=== PATIENT | male | born 1960 | race Caucasian/White ===

== ENCOUNTER 2019-09-09 09:29 | Inpatient (IN) | payer OTHER ==
[~2019-09-09] VITALS: Ht 172.7 cm; Wt 73.8 kg
[~2019-09-09 09:29] MED LIST: ALBIPROI INH; ALBU3IS INH; ALBU90OI INH; ALBU90OI61 INH; Albuterol17 G1 INH; BENZ100A PO; BUDE10.22 INH; BUDE6HFA; CHOLESTEROL MED; MAGOXI400 PO; METPRE4DP PO; PRED10 PO; PRED20 PO; Percocet 5-3251 EACH PO; Prednisone20 MG PO; Proventil2.5 MG/3 M INH; TIOT18 INH; Zithromax250 MG PO
[2019-09-09 09:44] LABS: PO2 Arterial 245 mmHg (80-100)
[2019-09-09 09:44] LABS: BASOPHILS ABSOLUTE AUTO 0.12 K/mm3 (0.00-0.23); BASOPHILS PERCENT AUTO 1 % (0-2); EOSINOPHILS ABSOLUTE AUTO 1.08 K/mm3 (0.00-0.68); EOSINOPHILS PERCENT AUTO 7 % (0-6); Hematocrit 52.6 % (37.0-53.0); Hemoglobin 16.6 g/dL (13.5-17.5); IMMATURE GRAN ABSOLUTE AUTO 0.15 K/mm3 (0.00-0.10); IMMATURE GRAN PERCENT AUTO 1 % (0-1); LYMPHOCYTES ABSOLUTE AUTO 4.16 K/mm3 (0.84-5.20); LYMPHOCYTES PERCENT AUTO 25 % (21-46); MONOCYTES ABSOLUTE AUTO 2.06 K/mm3 (0.16-1.47); MONOCYTES PERCENT AUTO 13 % (4-13); Mean Corpuscular HGB Conc 31.6 g/dL (31.5-36.5); Mean Corpuscular Volume 101 fL (80-100); Mean Platelet Volume 10.6 fL (9.1-12.4); NEUTROPHILS ABSOLUTE AUTO 8.79 K/mm3 (1.96-9.15); NEUTROPHILS PERCENT AUTO 54 % (41-73); Platelet Count 326 K/mm3 (150-400); RDW Coefficient Variation 12.9 % (11.7-14.2); RDW Standard Deviation 48.5 fL (35.1-46.3); Red Blood Cell Count 5.19 M/mm3 (4.30-5.90); White Blood Cell Count 16.36 K/mm3 (4.00-11.30)
[2019-09-09 09:45] LABS: pH Blood Arterial 7.03 (7.35-7.45)
[2019-09-09 09:46] LABS: PCO2 Arterial > 105 mmHg (35-45)
[2019-09-09 10:03] LABS: Alanine Aminotransfer (ALT/SGP 91 U/L (12-78); Albumin, Blood 4.3 g/dL (3.4-5.0); Albumin/Globulin Ratio 1.2 (0.8-1.8); Alk Phos 111 U/L (50-136); Anion Gap 5 mmol/L (6-16); Aspartate Aminotrans (AST/SGOT 37 U/L (12-37); Bilirubin, Total 0.4 mg/dL (0.1-1.0); Blood Urea Nitrogen 16 mg/dL (8-24); Bun/Creatinine Ratio 16.6 (12.0-20.0); CO2, Blood 30 mmol/L (21-32); Calcium, Blood 9.2 mg/dL (8.5-10.1); Chloride, Blood 106 mmol/L (98-108); Creatinine, Blood 0.96 mg/dL (0.60-1.20); Globulin, Blood 3.5 g/dL (2.2-4.0); Glomerular Filtration Rate >60 (60-); Glucose, Blood 196 mg/dL (70-99); Potassium, Blood 4.6 mmol/L (3.5-5.5); Sodium, Blood 141 mmol/L (136-145); Total Protein, Blood 7.8 g/dL (6.4-8.2)
--- NOTE | 2019-09-09 12:40 | NUR ---
Patient arrived via gurney intubated and on sedation. He was 4 person transfer. He arrived wpyj 8.0 tube and 26cm at lips, vent settings AC 16, TV450 FiO2 30% with sats 100%.1240 Dr Ayers changed to spon. mode PS ) Fio2 30% and PEEP 5.0 and sats remain upper 90%'s. Placed OG to LIS and temp 16Fr Elias with clear lighrt yellow urine and sent sample to lab. He was starting to become Hypotensive systolic 80 and MAP >60 with Propofol 50mcg, Versed 3mg and started Azam-synepherine at 40mcg/min and systolic 90's. RT giving updrafts q2.
[2019-09-09 12:46] LABS: Source, Urine Catheter
[2019-09-09 12:49] LABS: Bilirubin, Urine Neg (Neg); Blood, Urine 2+ (Neg); Glucose Qualitative, Urine Neg (Neg); Ketones, Urine Neg (Neg); Leukocyte Esterase, Urine Neg (Neg); Nitrite, Urine Neg (Neg); Protein, Urine 2+ (Neg); Urobilinogen, Urine NORM (Normal)
[2019-09-09 13:12] LABS: Appearance, Urine Cloudy (Clear); Color, Urine Yellow (P-Yellow)
[2019-09-09 13:14] LABS: Amorphous Mod (0-Heavy); Bacteria Few /hpf; Red Blood Cells, Urine 0-2 /hpf (0-2); Squamous Epithelial Cells Few /hpf (Few); White Blood Cells, Urine 0-2 /hpf (0-5)
--- NOTE | 2019-09-09 15:00 | NUR ---
Titrating Propofol and Azam for systolic greater than 90, with little success and not want to increase Azam very high until CL placed. Called Dr Armen brooksved guero for PICC and he wants 2GM mag and continue updrats q2.
[2019-09-09 18:07] LABS: Base Excess Venous -2.9 mmol/L; Bicarbonate Venous 21.7 mmol/L (24.0-30.0); PCO2 Venous 43.6 mmHg (38-42); PO2 Venous 52.8 mmHg (38-42); pH Blood Venous 7.33 (7.34-7.37)
--- NOTE | 2019-09-09 18:31 | NUR ---
No significant changes with patient. Vent settings remains the same at Spon mode , PS 0, FiO2 30% and PEEP of 5 and sats in the upper 90%'s. PICC line CORINNE and infusing Propofol 50mcg/kg/min, Azam-synepherine 50 mcg/min, Versed 4mg/hr and currently Mag 2GM. Patient resting quietly, but breath sounds still tight with decreased wheezing. 16Fr Temp puentes, urine getting cloudy, OG to LIS with scant clear output.
--- NOTE | 2019-09-09 20:44 | NUR ---
ASSUMED CARE OF PT, REPORT RCV'D FROM ELIDA MARIO. PT INTUBATED WITH VENT SETTINGS SPONT 0 PEEP 5 FIO2 30%. SEDATED WITH PROPFOL 50 MCG/KG/MIN AND VERSED 4 MG/HR. PT ALERT TO PAINFUL STIMULI, FAILS TO FOLLOW COMMANDS. JULIETTE AT 50 MCG/MIN. LUNG SOUNDS EXTREMELY TIGHT T/O WITH WHEEZES. Q2 DUONEB TX PER RT. OGT TO LIS, CLEAR BILE OUTPUT. SCANT AMOUNT OF THICK BRUNO SECRETIONS SUCTIONED. TEMP BERMAN DRAINING CLOUDY YELLOW URINE. SEE FULL SHIFT ASSESSMENT.
[2019-09-09 21:06] LABS: Adenovirus Not Detected (NOT DETECT); Bordetella pertussis Not Detected (NOT DETECT); Chlamydophila pneumoniae Not Detected (NOT DETECT); Coronavirus 229E Not Detected (NOT DETECT); Coronavirus HKU1 Not Detected (NOT DETECT); Coronavirus NL63 Not Detected (NOT DETECT); Coronavirus OC43 Not Detected (NOT DETECT); Human Metapneumovirus Not Detected (NOT DETECT); Human Rhinovirus/Enterovirus Not Detected (NOT DETECT); Influenza A Not Detected (NOT DETECT); Influenza A/2009-H1 Not Detected (NOT DETECT); Influenza A/H1 Not Detected (NOT DETECT); Influenza A/H3 Not Detected (NOT DETECT); Influenza B Not Detected (NOT DETECT); Mycoplasma pneumoniae Not Detected (NOT DETECT); Parainfluenza Virus 1 Not Detected (NOT DETECT); Parainfluenza Virus 2 Not Detected (NOT DETECT); Parainfluenza Virus 3 Not Detected (NOT DETECT); Parainfluenza Virus 4 Not Detected (NOT DETECT); Respiratory Syncytial Virus Not Detected (NOT DETECT)
[2019-09-10 04:08] LABS: BASOPHILS ABSOLUTE AUTO 0.03 K/mm3 (0.00-0.23); BASOPHILS PERCENT AUTO 0 % (0-2); EOSINOPHILS PERCENT AUTO 0 % (0-6); Hematocrit 42.7 % (37.0-53.0); Hemoglobin 13.9 g/dL (13.5-17.5); IMMATURE GRAN ABSOLUTE AUTO 0.16 K/mm3 (0.00-0.10); IMMATURE GRAN PERCENT AUTO 1 % (0-1); LYMPHOCYTES ABSOLUTE AUTO 0.62 K/mm3 (0.84-5.20); LYMPHOCYTES PERCENT AUTO 3 % (21-46); MONOCYTES ABSOLUTE AUTO 1.45 K/mm3 (0.16-1.47); MONOCYTES PERCENT AUTO 8 % (4-13); Mean Corpuscular HGB 32.6 pg (26.0-34.0); Mean Corpuscular HGB Conc 32.6 g/dL (31.5-36.5); Mean Corpuscular Volume 100 fL (80-100); Mean Platelet Volume 10.6 fL (9.1-12.4); NEUTROPHILS ABSOLUTE AUTO 17.09 K/mm3 (1.96-9.15); NEUTROPHILS PERCENT AUTO 88 % (41-73); Platelet Count 264 K/mm3 (150-400); RDW Coefficient Variation 13.5 % (11.7-14.2); RDW Standard Deviation 50.3 fL (35.1-46.3); Red Blood Cell Count 4.27 M/mm3 (4.30-5.90); White Blood Cell Count 19.35 K/mm3 (4.00-11.30)
[2019-09-10 04:33] LABS: Magnesium, Blood 2.5 mg/dL (1.6-2.4)
[2019-09-10 04:36] LABS: Alanine Aminotransfer (ALT/SGP 63 U/L (12-78); Albumin/Globulin Ratio 0.9 (0.8-1.8); Alk Phos 80 U/L (50-136); Anion Gap 8 mmol/L (6-16); Aspartate Aminotrans (AST/SGOT 23 U/L (12-37); Bilirubin, Total 0.4 mg/dL (0.1-1.0); Blood Urea Nitrogen 18 mg/dL (8-24); Bun/Creatinine Ratio 21.4 (12.0-20.0); CO2, Blood 25 mmol/L (21-32); Calcium, Blood 8.5 mg/dL (8.5-10.1); Chloride, Blood 108 mmol/L (98-108); Creatinine, Blood 0.84 mg/dL (0.60-1.20); Globulin, Blood 3.3 g/dL (2.2-4.0); Glomerular Filtration Rate >60 (60-); Glucose, Blood 152 mg/dL (70-99); Potassium, Blood 3.9 mmol/L (3.5-5.5); Sodium, Blood 141 mmol/L (136-145); Total Protein, Blood 6.3 g/dL (6.4-8.2)
--- NOTE | 2019-09-10 06:06 | NUR ---
SHIFT SUMMARY PT REMAINS INTUBATED WITH SAME VENT SETTINGS. PROPOFOL @ 55 MCG/KG/MIN, PT EASILY AROUSED AND ABLE TO FOLLOW COMMANDS TO SQUEEZE HANDS, PT ANSWERS QUESTIONS WITH NODDING HEAD YES/NO AND TRIES TO TALK. PT PULLS AT RESTRAINTS AND ATTEMPTS TO GRAB THE TUBE WHEN RESTLESS. PT TOLERATED SPONTANEOUS VENT SETTINGS OVERNIGHT WITH MINIMAL VENT ALARMING. Q2 BREATHING TX COMPLETED WITH LITTLE TO NO IMPROVEMENT IN LUNG SOUNDS. LUNGS REMAIN TIGHT/DIM T/O WITH OCC WHEEZE. SCANT AMOUNT OF SECRETIONS FROM ETT. OGT HAD 500 ML DARK BROWN BILE OUTPUT. 600 ML CLOUDY YELLOW URINARY OUTPUT. NEOSYNEPHRINE @ 20 MCG/MIN TO MAINTAIN MAP>65, ATTEMPTS TO TITRATE BELOW 20 MCG/MIN RESULTED IN HYPOTENSION. TMAX 99.1. ALL OTHER VSS. WILL REPORT TO DAYSHIFT NURSE.
--- NOTE | 2019-09-10 08:30 | NUR ---
ASSESSMENT- PT AGITATED, ATTEMPTING TO REACH FOR ETT. DIAPHORETIC, DISTRESSED. EXPLAINED PLAN OF CARE, REASSURANCE GIVEN. ASSISTED TO REPOSITION FOR COMFORT, C/O SOB. PROPOFOL GTT INCREASED TO 60 MCG/KG/MIN WITH IMPROVEMENT. PRESSURE SUPPORT INCREASED FROM 0 TO 5 WITH IMPROVEMENT. TIDAL VOLUMES 600'S NOW WITH IMPROVED RESPIRATORY RATE-WAS 40'S WHEN AGITATED, NOW 14-18 BPM. LUNGS WITH WHEEZES THROUGHOUT. SINUS TACH. SBP STABLE. NEOSYNEPHRINE GTT OFF. CORINNE PICC DI. ABDOMEN LARGE, SOFT WITH HYPOACTIVE BOWEL SOUNDS. OGT TO LIS WITH CLEAR BROWN DRAINAGE. UO ADEQUATE VIA BERMAN. BILATERAL WRIST RESTRAINTS-EXTUBATION RISK. CALLED DR. RODRIGUEZ WITH UPDATE
--- NOTE | 2019-09-10 09:25 | NUR ---
RESTLESS, RX WITH PAIN MEDICATION WITH IMPROVEMENT, RESPIRATORY RATE SLOW-DECREASED PROPOFOL GTT BUT THEN AWAKE QUICKLY, VERY AGITATED. PROPOFOL NOW AT 50 MCG/KG/MIN, AWAKENS TO LIGHT VERBAL STIMULUS. SINUS TACH. BP STABLE.
--- NOTE | 2019-09-10 09:46 | NUR ---
DR. RODRIGUEZ HERE-ASSESSED PT. PT AWAKENS TO VERBAL, ABLE TO NOD HEAD. VSS
--- NOTE | 2019-09-10 11:02 | NUR ---
PT ASLEEP, AWAKENS QUICKLY AND AGITATED, REACHING FOR ETT. FAMILY HERE-UPDATED. REPORT TO DR. [id number] STARTED FOR SEDATION. EXPLAINED PLNA OF CARE.
--- NOTE | 2019-09-10 12:15 | NUR ---
REPIRATORY RATE 10-12 BPM WITH TIDAL VOLUMES 800'S. DECREASING PROPOFOL-NOW AT 25 MCG/KG/MIN. PT AWAKENS EASILY TO NAME, MORE COMFORTABLE. NODS HEAD OK IF ASKED IF BREATHING BETTER
--- NOTE | 2019-09-10 15:09 | NUR ---
PT SEDATED WITH PRECEDEX AT 0.3 MCG/KG/HR, PROPOFOL TITRATED OFF. CALM, OPENS EYES TO NAME, NODS HEAD. RESPIRATIONS UNLABORED. LUNGS NOW CLEAR, DIMINISHED LEFT BASE-MUCH IMPROVED. DR. RODRIGUEZ HERE-ASSESSED PT. PT'S SIGNIFICANT OTHER AT BEDSIDE. TUBE FEEDING INFUSING, ABDOMEN LARGE, SOFT, HYPOACTIVE BOWEL SOUNDS.
--- NOTE | 2019-09-10 19:30 | NUR ---
PT AGITATED WITH TURNING, RX FOR PAIN, REPOSITIONED, EMOTIONAL SUPPORT WITH IMPROVEMENT. PRECEDEX GTT AT 0.4. OPENS EYES, ABLE TO NOD TO QUESTIONS APPROPRIATELY. TOLERATING VENT NOW. NSR. SBP 90'S. GIRLFRIEND AT BEDSIDE.
--- NOTE | 2019-09-10 21:34 | NUR ---
ASSUMED CARE OF PT, REPORT RCV'D FROM ELIDA WOODS. PT SITTING UP IN BED, ALERT TO VERBAL STIMULI, FOLLOWING DIRECTIONS AND ABLE TO WRITE NEEDS ON PAPER WITH PEN. PT INTUBATED WITH VENT SETTINGS PS 5 PEEP 5 FI02 30%. PT SEDATED WITH PRECEDEX 0.4 MCG/KG/HR. NEOSYNEPHRINE PLACED ON HOLD PT'S MAP REMAINS ABOVE 65. PROPOFOL ON STANDBY, PT ADEQUATELY AND COMFORTABLE SEDATED WITH PRECEDEX. VHP @ 20 ML/HR WITH 30 ML Q4 H20 FLUSH, TF GOAL RATE OF 50 ML/HR. TF TO BE TURNED OFF IN AM FOR POSSIBLE EXTUBATION. TEMP BERMAN PATENT AND DRAINING CLOUDY YELLOW URINE. PT AFEBRILE AT THIS TIME. PT'S GIRLFRIEND AT BEDSIDE, UPDATED WITH PT'S STATUS AND PLAN OF CARE. SEE FULL SHIFT ASSESSMENT.
[2019-09-11 04:05] LABS: BASOPHILS ABSOLUTE AUTO 0.01 K/mm3 (0.00-0.23); BASOPHILS PERCENT AUTO 0 % (0-2); EOSINOPHILS PERCENT AUTO 0 % (0-6); Hematocrit 40.3 % (37.0-53.0); Hemoglobin 12.8 g/dL (13.5-17.5); IMMATURE GRAN ABSOLUTE AUTO 0.07 K/mm3 (0.00-0.10); IMMATURE GRAN PERCENT AUTO 0 % (0-1); LYMPHOCYTES ABSOLUTE AUTO 0.85 K/mm3 (0.84-5.20); LYMPHOCYTES PERCENT AUTO 5 % (21-46); MONOCYTES ABSOLUTE AUTO 1.18 K/mm3 (0.16-1.47); MONOCYTES PERCENT AUTO 7 % (4-13); Mean Corpuscular HGB 31.6 pg (26.0-34.0); Mean Corpuscular HGB Conc 31.8 g/dL (31.5-36.5); Mean Corpuscular Volume 100 fL (80-100); Mean Platelet Volume 10.3 fL (9.1-12.4); NEUTROPHILS ABSOLUTE AUTO 14.75 K/mm3 (1.96-9.15); NEUTROPHILS PERCENT AUTO 88 % (41-73); Platelet Count 209 K/mm3 (150-400); RDW Coefficient Variation 13.4 % (11.7-14.2); RDW Standard Deviation 49.4 fL (35.1-46.3); Red Blood Cell Count 4.05 M/mm3 (4.30-5.90); White Blood Cell Count 16.86 K/mm3 (4.00-11.30)
[2019-09-11 04:20] LABS: Anion Gap 6 mmol/L (6-16); Blood Urea Nitrogen 17 mg/dL (8-24); Bun/Creatinine Ratio 22.7 (12.0-20.0); CO2, Blood 28 mmol/L (21-32); Calcium, Blood 8.3 mg/dL (8.5-10.1); Chloride, Blood 107 mmol/L (98-108); Creatinine, Blood 0.75 mg/dL (0.60-1.20); Glomerular Filtration Rate >60 (60-); Glucose, Blood 136 mg/dL (70-99); Magnesium, Blood 2.5 mg/dL (1.6-2.4); Phosphorus, Blood 3.4 mg/dL (2.5-4.9); Potassium, Blood 4.4 mmol/L (3.5-5.5); Sodium, Blood 141 mmol/L (136-145)
--- NOTE | 2019-09-11 06:02 | NUR ---
SHIFT SUMMARY NO ACUTE CHANGES OVERNIGHT. PT REMAINS VERY ALERT AND ORIENTED. PT ABLE TO APPROPRIATELY USE HIS CALL LIGHT AND ABLE TO CONVEY NEEDS BY USING PEN AND PAPER. PT VERY ANXIOUS TO BE EXTUBATED AND "WANTS TO GO HOME". PT REMAINS ON PS 5, PEEP 5, FIO2 30% WITH TV BETWEEN 500-600. PRECEDEX @ 0.7 MCG/KG/HR. TF TURNED OFF @ 0500 PER PHYSICIAN REQUEST D/T ANTICIPATED EXTUBATION. PT'S VSS OVERNIGHT. 700 ML CLOUDY [place] URINARY OUTPUT. WILL REPORT TO DAYSHIFT NURSE.
--- NOTE | 2019-09-11 08:30 | NUR ---
ASSESSMENT- PT AWAKENS EASILY TO NAME. ALERT, ABLE TO WRITE BRIEF NOTES TO COMMUNICATE. DENIES SOB. TOLERATING VENT. MOTIONING TO TAKE TUBE OUT-EXPLAINED PLAN OF CARE, NODS HEAD UNDERSTANDING. LUNGS CLEAR, NO WHEEZES. SINUS RHYTHM, BP STABLE. IV NS TKO VIA CORINNE PICC DI. TUBE FEEDING REMAINS OFF.OGT CLAMPED.ABDOMEN ROUNDED, SOFT. UO ADEQUATE VIA BERMAN. SCDS ON. REPOSITIONED, ASSISTED WITH MOVEMENT. PRECEDEX AT 0.7 MCG/KG/HR FOR SEDATION. BILATERAL WRIST RESTRAINTS, EXTUBATION RISK.
--- NOTE | 2019-09-11 09:13 | NUR ---
DR. PRESSLEY HERE-UPDATED. WILL REVIEW XRAY. VSS. SEDATED, CALM. TOLERATING VENT
--- NOTE | 2019-09-11 09:49 | NUR ---
PT EXTUBATED TO NASAL CANNULA, AWAKE, ALERT, WHEEZES PRESENT AFTER EXTUBATION. STATES BREATHING OKAY, STATES ALWAYS HAS WHEEZES. PT DID OWN ORAL CARE. NPO FOR NOW. RESTRAINTS OFF. PRECEDEX OFF. UPDATED PT WITH PLAN OF CARE. VSS
--- NOTE | 2019-09-11 12:23 | NUR ---
PT ASSISTED UP TO CHAIR-DID VERY WELL WITH ACTIVITY. NSR. SATURATIONS STABLE, DENIES SOB. BERMAN D/C. BEDSIDE SWALLOW DONE-DID WELL, NO S/S ASPIRATION. C/O BLACK SPOT IN FIELD OF VISION-STATES NOT NORMAL FOR HIM. UPDATE TO DR. PRESSLEY. ORDERS FOR SOFT DIET (PT PREFERENCE DUE TO DENTURES)
--- NOTE | 2019-09-11 13:18 | NUR ---
SITTING UP IN CHAIR, DENIES ANY DISTRESS. STATES WOULD LIKE TO QUIT CHEWING AND DRINKING ALCOHOL. DISCUSSED HEALTH BENEFITS OF QUITTING.
--- NOTE | 2019-09-11 17:23 | NUR ---
PT LAYING ON SIDE-BRIEF PERIOD OF ECTOPY WITH POSITIONING. PICC LINE D/C AFTER PIV PLACED. PT EATING DINNER WITH GIRLFRIEND. VSS. DENIES PROBLEMS. STATES NO VISION PROBLEMS NOW, NO BLACK SPOT. CONTINUE TO MONITOR
--- NOTE | 2019-09-11 18:37 | NUR ---
PT C/O HEADACHE, RX GIVEN. UP IN ROOM WITHOUT PROBLEMS. NSR. INFORMATION GIVEN ON COPD AND SMOKING CESSATION
--- NOTE | 2019-09-11 21:01 | NUR ---
PATIENT RESTING IN BED WATCHING TV AND TALKING WITH FAMILY. NO COMPLAINTS AT THIS TIME. VERBALIZING THAT HE FEELS READY TO GO HOME. VSS REMAINING ON RA AT THIS TIME. PATIENT VERBALIZED THAT HE FEELS IF HE IS BREATHING BETTER TONIGHT THAN HE HAS IN DAYS.
[2019-09-12 03:57] LABS: BASOPHILS ABSOLUTE AUTO 0.02 K/mm3 (0.00-0.23); BASOPHILS PERCENT AUTO 0 % (0-2); EOSINOPHILS ABSOLUTE AUTO 0.01 K/mm3 (0.00-0.68); EOSINOPHILS PERCENT AUTO 0 % (0-6); Hematocrit 41.8 % (37.0-53.0); Hemoglobin 13.4 g/dL (13.5-17.5); IMMATURE GRAN ABSOLUTE AUTO 0.12 K/mm3 (0.00-0.10); IMMATURE GRAN PERCENT AUTO 1 % (0-1); LYMPHOCYTES ABSOLUTE AUTO 0.85 K/mm3 (0.84-5.20); LYMPHOCYTES PERCENT AUTO 6 % (21-46); MONOCYTES ABSOLUTE AUTO 1.03 K/mm3 (0.16-1.47); MONOCYTES PERCENT AUTO 8 % (4-13); Mean Corpuscular HGB 31.8 pg (26.0-34.0); Mean Corpuscular HGB Conc 32.1 g/dL (31.5-36.5); Mean Corpuscular Volume 99 fL (80-100); Mean Platelet Volume 10.5 fL (9.1-12.4); NEUTROPHILS ABSOLUTE AUTO 11.15 K/mm3 (1.96-9.15); NEUTROPHILS PERCENT AUTO 85 % (41-73); Platelet Count 214 K/mm3 (150-400); RDW Standard Deviation 48.5 fL (35.1-46.3); Red Blood Cell Count 4.21 M/mm3 (4.30-5.90); White Blood Cell Count 13.18 K/mm3 (4.00-11.30)
[2019-09-12 04:18] LABS: Anion Gap 7 mmol/L (6-16); Blood Urea Nitrogen 20 mg/dL (8-24); Bun/Creatinine Ratio 25.2 (12.0-20.0); CO2, Blood 27 mmol/L (21-32); Calcium, Blood 8.9 mg/dL (8.5-10.1); Chloride, Blood 105 mmol/L (98-108); Creatinine, Blood 0.79 mg/dL (0.60-1.20); Glomerular Filtration Rate >60 (60-); Glucose, Blood 134 mg/dL (70-99); Potassium, Blood 4.4 mmol/L (3.5-5.5); Sodium, Blood 139 mmol/L (136-145)
--- NOTE | 2019-09-12 05:42 | NUR ---
SUMMARY PATIENT RESTING QUIETLY IN BED T/O NIGHT, VERBALIZED DIFFICULTY SLEEPING. MEDICATED ONCE WITH TYLENOL DUE TO FEELING RESTLESS AND SLIGHT ACHE. PATIENT UP AND DOWN TO TOILET WITHOUT DIFFICULTY. PATIENT CONTINUES TO VERBALIZE THAT HE FEELS BETTER THAN HE HAS IN WEEKS AND FEELS READY TO GO HOME.
--- NOTE | 2019-09-12 07:44 | NUR ---
ASSUMED CARE OF PT. PT IS ALERT AND ORIENTED. DENIES PAIN. PT STATES THAT HE IS READY TO GO HOME TODAY. EXPLAINED TO PT TO WAIT UNTIL THE DR. SEEMS HIM. PT STATED " I WILL TAKE GOOD CARE OF MYSELF THIS TIME. I DON'T WANT TO GO THROUGH WHAT I HAD BEEN THROUGH."
--- NOTE | 2019-09-12 09:45 | NUR ---
PT SEEN BY DR. PRESSLEY AND DR. GOMES. PT WILL BE DISCHARGE TODAY.
[2019-09-12] MEDS ORDERED: FOLI1 PO (12:11)
[2019-09-12] MEDS ORDERED: ATOR10 PO (12:11)
[2019-09-12] MEDS ORDERED: Flomax0.4 MG PO (12:13)
[2019-09-12] MEDS ORDERED: ALBU3IS INH (12:13)
[2019-09-12] MEDS ORDERED: B-1100 MG PO (12:14)
[2019-09-12] MEDS ORDERED: Prednisone10 MG PO (12:16)
--- NOTE | 2019-09-12 13:58 | NUR ---
DISCHARGE 1256- PT WAS DISCHARGED AT THIS TIME. DISCHARGE INSTRUCTION PACKET WAS GIVEN TO PATIENT.
== END 2019-09-12 12:56 | disposition home or self-care (01) | DRG 208 ==
LOC: ER 09:29 → ICUW 10:31
PROVIDERS: Emergency Medicine; Internal Medicine Critical Care Medicine; ADMIT Internal Medicine
PROC: 0BH17EZ Insertion of Endotracheal Airway into Trachea, Via Natural or Artificial Opening (ICD-10-PCS; principal; 2019-09-09)
PROC: 5A1945Z Respiratory Ventilation, 24-96 Consecutive Hours (ICD-10-PCS; 2019-09-09)
DX: J43.9 Emphysema, unspecified (principal); J96.02 Acute respiratory failure with hypercapnia; R65.11 Systemic inflammatory response syndrome (SIRS) of non-infectious origin with acute organ dysfunction; E87.2 Acidosis; N40.0 Benign prostatic hyperplasia without lower urinary tract symptoms; E78.5 Hyperlipidemia, unspecified; J32.9 Chronic sinusitis, unspecified; Z87.891 Personal history of nicotine dependence; R45.1 Restlessness and agitation; R91.8 Other nonspecific abnormal finding of lung field; J45.909 Unspecified asthma, uncomplicated
CPT/HCPCS: 0099U; 31500; 31720; 36415; 36569; 36600; 51702; 71045; 80048; 80053; 81001; 82803; 82947; 83735; 84100; 85025; 90670; 90686; 93005; 93010; 94002; 94003; 94640; 94644; 94660; 96365; 96375; 96376; 99291-25; A9270; C1751; J0330; J0456; J0696; J1650; J2060; J2250; J2270; J2370; J2405; J2704; J2920; J3010; J3475; J7030; J7040; J7050

== ENCOUNTER → 2019-11-30 | Outpatient (CLI) | payer OTHER ==
[~2019-11-30] MED LIST changes: +ANORO ELLIPTA1 EACH INH; +ATOR40TA PO; +B-1100 MG PO; +Chantix1 EACH PO; +Duoneb 2.5-0.5 M3 ML NEB; +FOLI1 PO; +Flomax0.4 MG PO; +MONTELUKAST SOD10 M1 PO; +OMEP20ER PO; +PRED5 PO
[2019-11-30 12:55] LABS: BASOPHILS ABSOLUTE AUTO 0.08 K/mm3 (0.00-0.23); BASOPHILS PERCENT AUTO 1 % (0-2); EOSINOPHILS ABSOLUTE AUTO 0.43 K/mm3 (0.00-0.68); EOSINOPHILS PERCENT AUTO 4 % (0-6); Hematocrit 46.8 % (37.0-53.0); Hemoglobin 15.7 g/dL (13.5-17.5); IMMATURE GRAN ABSOLUTE AUTO 0.14 K/mm3 (0.00-0.10); IMMATURE GRAN PERCENT AUTO 1 % (0-1); LYMPHOCYTES ABSOLUTE AUTO 2.55 K/mm3 (0.84-5.20); LYMPHOCYTES PERCENT AUTO 26 % (21-46); MONOCYTES ABSOLUTE AUTO 1.19 K/mm3 (0.16-1.47); MONOCYTES PERCENT AUTO 12 % (4-13); Mean Corpuscular HGB Conc 33.5 g/dL (31.5-36.5); Mean Corpuscular Volume 95 fL (80-100); Mean Platelet Volume 10.4 fL (9.1-12.4); NEUTROPHILS ABSOLUTE AUTO 5.32 K/mm3 (1.96-9.15); NEUTROPHILS PERCENT AUTO 55 % (41-73); Platelet Count 317 K/mm3 (150-400); RDW Coefficient Variation 13.2 % (11.7-14.2); RDW Standard Deviation 46.5 fL (35.1-46.3); Red Blood Cell Count 4.91 M/mm3 (4.30-5.90); White Blood Cell Count 9.71 K/mm3 (4.00-11.30)
[2019-11-30 12:59] LABS: Anion Gap 10 mmol/L (6-16); Blood Urea Nitrogen 8 mg/dL (8-24); Bun/Creatinine Ratio 8.8 (12.0-20.0); CO2, Blood 29 mmol/L (21-32); Calcium, Blood 8.5 mg/dL (8.5-10.1); Chloride, Blood 105 mmol/L (98-108); Creatinine, Blood 0.91 mg/dL (0.60-1.20); Glomerular Filtration Rate >60 (60-); Glucose, Blood 107 mg/dL (70-99); Potassium, Blood 3.9 mmol/L (3.5-5.5); Sodium, Blood 144 mmol/L (136-145)
== END | disposition home or self-care (01) ==
LOC: LAB EV 12:50 → LAB SHORT 12:50
PROVIDERS: Physician Assistant Surgical
DX: R06.02 Shortness of breath (principal)
CPT/HCPCS: 80048; 85025

== ENCOUNTER 2019-12-31 15:03 | Emergency (ER) | payer OTHER ==
[~2019-12-31] VITALS: Ht 177.8 cm; Wt 81.7 kg
[2019-12-31 16:21] LABS: BASOPHILS ABSOLUTE AUTO 0.07 K/mm3 (0.00-0.23); BASOPHILS PERCENT AUTO 1 % (0-2); EOSINOPHILS ABSOLUTE AUTO 0.62 K/mm3 (0.00-0.68); EOSINOPHILS PERCENT AUTO 5 % (0-6); Hematocrit 46.9 % (37.0-53.0); Hemoglobin 15.4 g/dL (13.5-17.5); IMMATURE GRAN ABSOLUTE AUTO 0.15 K/mm3 (0.00-0.10); IMMATURE GRAN PERCENT AUTO 1 % (0-1); LYMPHOCYTES ABSOLUTE AUTO 2.06 K/mm3 (0.84-5.20); LYMPHOCYTES PERCENT AUTO 17 % (21-46); MONOCYTES ABSOLUTE AUTO 1.37 K/mm3 (0.16-1.47); MONOCYTES PERCENT AUTO 11 % (4-13); Mean Corpuscular HGB 32.2 pg (26.0-34.0); Mean Corpuscular HGB Conc 32.8 g/dL (31.5-36.5); Mean Corpuscular Volume 98 fL (80-100); Mean Platelet Volume 10.5 fL (9.1-12.4); NEUTROPHILS ABSOLUTE AUTO 8.08 K/mm3 (1.96-9.15); NEUTROPHILS PERCENT AUTO 65 % (41-73); Platelet Count 296 K/mm3 (150-400); RDW Coefficient Variation 13.2 % (11.7-14.2); RDW Standard Deviation 47.8 fL (35.1-46.3); Red Blood Cell Count 4.78 M/mm3 (4.30-5.90); White Blood Cell Count 12.35 K/mm3 (4.00-11.30)
[2019-12-31 16:53] LABS: Alanine Aminotransfer (ALT/SGP 56 U/L (12-78); Albumin, Blood 3.4 g/dL (3.4-5.0); Albumin/Globulin Ratio 0.9 (0.8-1.8); Alk Phos 101 U/L (50-136); Anion Gap 6 mmol/L (6-16); Aspartate Aminotrans (AST/SGOT 22 U/L (12-37); Bilirubin, Total 0.3 mg/dL (0.1-1.0); Blood Urea Nitrogen 12 mg/dL (8-24); Bun/Creatinine Ratio 14.7 (12.0-20.0); CO2, Blood 29 mmol/L (21-32); Calcium, Blood 9.2 mg/dL (8.5-10.1); Chloride, Blood 106 mmol/L (98-108); Creatinine, Blood 0.82 mg/dL (0.60-1.20); Globulin, Blood 3.7 g/dL (2.2-4.0); Glomerular Filtration Rate >60 (60-); Glucose, Blood 99 mg/dL (70-99); Potassium, Blood 3.6 mmol/L (3.5-5.5); Sodium, Blood 141 mmol/L (136-145); Total Protein, Blood 7.1 g/dL (6.4-8.2); Troponin I <0.015 ng/mL (0.000-0.040)
[2019-12-31] MEDS ORDERED: Prednisone20 MG PO (19:39)
[2019-12-31] MEDS ORDERED: Vibramycin100 MG PO (19:39)
== END 2019-12-31 20:01 | disposition home or self-care (01) ==
LOC: ER 15:03
PROVIDERS: Emergency Medicine
DX: J44.9 Chronic obstructive pulmonary disease, unspecified (principal); Z79.899 Other long term (current) drug therapy; Z79.52 Long term (current) use of systemic steroids; Z87.891 Personal history of nicotine dependence
CPT/HCPCS: 36415; 71045; 80053; 83880; 84484; 85025; 93005; 93010; 94645; 96374; 99285-25; J2930

== ENCOUNTER 2022-01-12 11:56 | Inpatient (IN) | payer OTHER ==
[~2022-01-12] VITALS: Ht 172.7 cm; Wt 83.7 kg
[~2022-01-12 11:56] MED LIST changes: +Budeprion Xl300 MG PO; +CILO100 PO; +CLOP75 PO; +CYCL10 PO; +FLONASE ALLERG9.9 M2; +Flovent Diskus50 MCG INH; +HYDCHL25 PO; +IPRAT-ALBUT 0.5-3 ML IH; +LISI20 PO; +Vibramycin100 MG PO
[2022-01-12 12:19] LABS: Bicarbonate Venous 25.3 mmol/L (24.0-30.0); PCO2 Venous 56.9 mmHg (38-42); pH Blood Venous 7.32 (7.34-7.37)
[2022-01-12 12:57] LABS: BASOPHILS ABSOLUTE AUTO 0.08 K/mm3 (0.00-0.23); BASOPHILS PERCENT AUTO 1 % (0-2); EOSINOPHILS ABSOLUTE AUTO 0.38 K/mm3 (0.00-0.68); EOSINOPHILS PERCENT AUTO 3 % (0-6); Hematocrit 50.6 % (37.0-53.0); Hemoglobin 16.6 g/dL (13.5-17.5); IMMATURE GRAN ABSOLUTE AUTO 0.16 K/mm3 (0.00-0.10); IMMATURE GRAN PERCENT AUTO 1 % (0-1); LYMPHOCYTES ABSOLUTE AUTO 2.38 K/mm3 (0.84-5.20); LYMPHOCYTES PERCENT AUTO 19 % (21-46); MONOCYTES ABSOLUTE AUTO 1.34 K/mm3 (0.16-1.47); MONOCYTES PERCENT AUTO 11 % (4-13); Mean Corpuscular HGB 31.6 pg (26.0-34.0); Mean Corpuscular HGB Conc 32.8 g/dL (31.5-36.5); Mean Corpuscular Volume 96 fL (80-100); NEUTROPHILS ABSOLUTE AUTO 7.99 K/mm3 (1.96-9.15); NEUTROPHILS PERCENT AUTO 65 % (41-73); Platelet Count 306 K/mm3 (150-400); RDW Standard Deviation 46.5 fL (35.1-46.3); Red Blood Cell Count 5.25 M/mm3 (4.30-5.90); White Blood Cell Count 12.33 K/mm3 (4.00-11.30)
[2022-01-12 13:12] LABS: Anion Gap 7 mmol/L (6-16); Blood Urea Nitrogen 15 mg/dL (8-24); Bun/Creatinine Ratio 14.7 (12.0-20.0); CO2, Blood 28 mmol/L (21-32); Chloride, Blood 108 mmol/L (98-108); Creatinine, Blood 1.02 mg/dL (0.60-1.20); Glomerular Filtration Rate >60 (60-); Glucose, Blood 107 mg/dL (70-99); Sodium, Blood 143 mmol/L (136-145)
[2022-01-12 15:13] LABS: Influenza A, PCR NEGATIVE (NEGATIVE); Influenza B, PCR NEGATIVE (NEGATIVE); Resp Syncytial Virus, PCR NEGATIVE (NEGATIVE); SARS-Cov-2 (COVID-19) PCR, MMC NEGATIVE (NEGATIVE)
[2022-01-12] MEDS ORDERED: IPRAT-ALBUT 0.5-3 ML NEB (16:13)
[2022-01-12] MEDS ORDERED: Prednisone10 MG PO (16:33)
--- NOTE | 2022-01-12 19:49 | NUR ---
SHIFT SUMMARY PT ARRIVED TO ROOM 330 FROM ED AT 1555. ABLE TO TRANSFER TO BED INDEPENDENTLY. CAME UP ON 4L/M AND THEN BIPAP WAS BROUGHT UP BY RT AND ASSESSED FOR NOT NEEDING FOR AWHILE AFTER COMING TO UNIT. A/OX4. INDEPENDENT TO USE URINAL. SOB WITH ANY ACTIVITY. REPORTED FEELING VERY HUNGRY ON ARRIVAL. HAD AN EPISODE OF URGENT LOOSE STOOL THIS EVENING. S.O. AT BEDSIDE.
--- NOTE | 2022-01-12 22:33 | NUR ---
ALERT AND ORIENTED. HERE EARLIER, SHE LEFT AT HS. WITHDRAWL CHECKS CONTINUE. WAS 3 EARLIER. MD ORDERED LIBRIUM PO - SEE MAR FOR DETAILS. CALL LIGHT IN REACH. IVF INFUSING. AGREES TO USE CALL LIGHT FOR NEEDS.
--- NOTE | 2022-01-13 05:34 | NUR ---
[employer]AME [employer] SUPER[employer]OR SUMMARY AWAKE AT INTERVALS WITH INTERMITTENT COUGHING. IVF INFUSED SEE MAR FOR DETAILS. VOIDED SOME 2000 CC CLEAR YELLOW. CIWAS REMAIN AROUND 3. CONT PULSE OX - 90'S. CALL LIGHT IN REACH.
--- NOTE | 2022-01-13 18:39 | NUR ---
SHIFT SUMMARY PT ADMITTED FOR COPD EXAC AND CURRENTLY ON 2 LITERS O2 VIA NC. LUNGS SOUND CLEAR BUT PT REPORTS PERIODIC DYSPNEA. CIWAS Q4. CIWAS HAVE CONSISTENTLY 2 AND HE HAS SCHEDULED LIBRIUM. VSS.
[2022-01-14 05:48] LABS: BASOPHILS ABSOLUTE AUTO 0.03 K/mm3 (0.00-0.23); BASOPHILS PERCENT AUTO 0 % (0-2); EOSINOPHILS PERCENT AUTO 0 % (0-6); Hematocrit 45.3 % (37.0-53.0); Hemoglobin 14.9 g/dL (13.5-17.5); IMMATURE GRAN ABSOLUTE AUTO 0.27 K/mm3 (0.00-0.10); IMMATURE GRAN PERCENT AUTO 2 % (0-1); LYMPHOCYTES ABSOLUTE AUTO 0.75 K/mm3 (0.84-5.20); LYMPHOCYTES PERCENT AUTO 4 % (21-46); MONOCYTES PERCENT AUTO 6 % (4-13); Mean Corpuscular HGB 31.6 pg (26.0-34.0); Mean Corpuscular HGB Conc 32.9 g/dL (31.5-36.5); Mean Corpuscular Volume 96 fL (80-100); Mean Platelet Volume 10.2 fL (9.1-12.4); NEUTROPHILS ABSOLUTE AUTO 15.64 K/mm3 (1.96-9.15); NEUTROPHILS PERCENT AUTO 88 % (41-73); Platelet Count 286 K/mm3 (150-400); RDW Standard Deviation 46.7 fL (35.1-46.3); Red Blood Cell Count 4.71 M/mm3 (4.30-5.90); White Blood Cell Count 17.69 K/mm3 (4.00-11.30)
[2022-01-14 06:18] LABS: Anion Gap 8 mmol/L (6-16); Blood Urea Nitrogen 17 mg/dL (8-24); Bun/Creatinine Ratio 19.7 (12.0-20.0); CO2, Blood 26 mmol/L (21-32); Calcium, Blood 8.9 mg/dL (8.5-10.1); Chloride, Blood 106 mmol/L (98-108); Creatinine, Blood 0.86 mg/dL (0.60-1.20); Glomerular Filtration Rate >60 (60-); Glucose, Blood 160 mg/dL (70-99); Potassium, Blood 4.3 mmol/L (3.5-5.5); Sodium, Blood 140 mmol/L (136-145)
--- NOTE | 2022-01-14 06:35 | NUR ---
Patient is alert and oriented x4. gait steady. independent. no complains of pain. O2 saturation above 95% with 2L. Patient gets SOB when ambulating or upon exertion. Breathing treatment given. Patient has steroids. Snacks provided. CIWA 2, slight tremor. Educated pt about coffee/caffeine intake, patient keeps asking for coffee. Call light within reach.
--- NOTE | 2022-01-14 08:00 | NUR ---
pt laying in bed awake a/ox3, pleasant and cooperative with care, follows commands well, denies pain, is anxious about breathing, getting in a bad situation with his breathing like happened prior to this hospital stay, s.o. reports significant sleep apnea, he reports he's never notified his pcp, lungs are clear but a bit dim t/o, resp even and unlabored, currently on 2 liters, will check on r/a, no cough noted at this time, hrr, no edema noted, ppp+2, cap refill <3sec, vs stable, afebrile, iv to rac site clear and patent, btx4, abd flat soft nontender, voids without diff, skin c/w/d, khari harding, call light in reach.
--- NOTE | 2022-01-14 14:51 | NUR ---
PT HAS BEEN DISCHARGED TO HOME, WILL FOLLOW UP WITH PULMINARY, NEW MEDICATION CALLED INTO [facility], IV REMOVED INTACT, VERBALIZED UNDERSTANDING OF INSTRUCTIONS.
--- NOTE | 2022-01-14 15:00 | NUR ---
pt left via ambulation with and side splitter in attendence.
== END 2022-01-14 15:44 | disposition home or self-care (01) | DRG 189 ==
LOC: ER 11:56 → MEDS 14:35
PROVIDERS: Family Medicine; Nurse Practitioner Acute Care; Student in an Organized Health Care Education/Training Program; ADMIT Internal Medicine
PROC: HZ2ZZZZ Detoxification Services for Substance Abuse Treatment (ICD-10-PCS; principal; 2022-01-12)
PROC: 5A09357 Assistance with Respiratory Ventilation, Less than 24 Consecutive Hours, Continuous Positive Airway Pressure (ICD-10-PCS; 2022-01-12)
DX: J96.01 Acute respiratory failure with hypoxia (principal); J44.1 Chronic obstructive pulmonary disease with (acute) exacerbation; R65.10 Systemic inflammatory response syndrome (SIRS) of non-infectious origin without acute organ dysfunction; E87.2 Acidosis; J96.02 Acute respiratory failure with hypercapnia; Z20.822 Contact with and (suspected) exposure to COVID-19; N40.0 Benign prostatic hyperplasia without lower urinary tract symptoms; E78.5 Hyperlipidemia, unspecified; K21.9 Gastro-esophageal reflux disease without esophagitis; I10 Essential (primary) hypertension; I73.9 Peripheral vascular disease, unspecified; D72.828 Other elevated white blood cell count; T38.0X5A Adverse effect of glucocorticoids and synthetic analogues, initial encounter; F41.9 Anxiety disorder, unspecified; F10.20 Alcohol dependence, uncomplicated; Z87.891 Personal history of nicotine dependence
CPT/HCPCS: 0241U; 36415; 71045; 80048; 82803; 85025; 93005; 93010; 94640; 94644; 94660; 94664; 94762; 96365; 99285-25; A9270; J1650; J2930; J3411; J3475; J7030; J7042; J7120; J7512

== ENCOUNTER 2022-02-04 03:23 | Inpatient (IN) | payer OTHER ==
[~2022-02-04] VITALS: Ht 172.7 cm; Wt 81.7 kg
[~2022-02-04 03:23] MED LIST changes: +IPRAT-ALBUT 0.5-3 ML NEB; +Prednisone10 MG PO
[2022-02-04 03:35] LABS: BASOPHILS ABSOLUTE AUTO 0.08 K/mm3 (0.00-0.23); BASOPHILS PERCENT AUTO 1 % (0-2); EOSINOPHILS ABSOLUTE AUTO 0.52 K/mm3 (0.00-0.68); EOSINOPHILS PERCENT AUTO 4 % (0-6); Hemoglobin 16.2 g/dL (13.5-17.5); IMMATURE GRAN ABSOLUTE AUTO 0.22 K/mm3 (0.00-0.10); IMMATURE GRAN PERCENT AUTO 2 % (0-1); LYMPHOCYTES ABSOLUTE AUTO 2.36 K/mm3 (0.84-5.20); LYMPHOCYTES PERCENT AUTO 20 % (21-46); MONOCYTES ABSOLUTE AUTO 1.26 K/mm3 (0.16-1.47); MONOCYTES PERCENT AUTO 11 % (4-13); Mean Corpuscular HGB 31.4 pg (26.0-34.0); Mean Corpuscular HGB Conc 33.1 g/dL (31.5-36.5); Mean Corpuscular Volume 95 fL (80-100); Mean Platelet Volume 9.6 fL (9.1-12.4); NEUTROPHILS PERCENT AUTO 63 % (41-73); Platelet Count 353 K/mm3 (150-400); RDW Coefficient Variation 12.7 % (11.7-14.2); RDW Standard Deviation 45.1 fL (35.1-46.3); Red Blood Cell Count 5.16 M/mm3 (4.30-5.90); White Blood Cell Count 11.84 K/mm3 (4.00-11.30)
[2022-02-04 03:50] LABS: Base Excess Venous 1.6 mmol/L; Bicarbonate Venous 25.4 mmol/L (24.0-30.0); PCO2 Venous 43.3 mmHg (38-42); PO2 Venous 113 mmHg (38-42)
[2022-02-04 03:51] LABS: Anion Gap 8 mmol/L (6-16); Blood Urea Nitrogen 16 mg/dL (8-24); Bun/Creatinine Ratio 16.5 (12.0-20.0); CO2, Blood 30 mmol/L (21-32); Calcium, Blood 9.1 mg/dL (8.5-10.1); Chloride, Blood 103 mmol/L (98-108); Creatinine, Blood 0.97 mg/dL (0.60-1.20); Glomerular Filtration Rate >60 (60-); Glucose, Blood 121 mg/dL (70-99); Potassium, Blood 4.4 mmol/L (3.5-5.5); Sodium, Blood 141 mmol/L (136-145)
[2022-02-04] MEDS ORDERED: ATORVASTATIN CA80 M1 PO (05:13)
[2022-02-04] MEDS ORDERED: CILOSTAZOL50 M1 PO (05:14)
[2022-02-04] MEDS ORDERED: CLOP75 PO (05:15)
[2022-02-04] MEDS ORDERED: CYCL10 PO (05:16)
[2022-02-04] MEDS ORDERED: Flonase 0.05% Nasal (05:18)
[2022-02-04] MEDS ORDERED: ZESTRIL40 M1 PO (05:19)
[2022-02-04] MEDS ORDERED: OMEP20ER PO (05:20)
[2022-02-04] MEDS ORDERED: FLOMAX0.4 MG PO (05:21)
[2022-02-04] MEDS ORDERED: ANORO ELLIPTA1 EACH INH (05:22)
[2022-02-04 06:11] LABS: Influenza A, PCR NEGATIVE (NEGATIVE); Influenza B, PCR NEGATIVE (NEGATIVE); Resp Syncytial Virus, PCR NEGATIVE (NEGATIVE); SARS-Cov-2 (COVID-19) PCR, MMC NEGATIVE (NEGATIVE)
--- NOTE | 2022-02-04 14:53 | NUR ---
PATIENT ARRIVED TO PCU BEFORE NOON. HE IS ALERT AND ORIENTED X 4. EXTREME SOB IS NOTED WITH EXERTION. PATIENT IS PLACED ON 4 LITERS O2 UP FROM 2 LITERS ON ARRIVAL. HE IS ABLE TO ANSWER ALL ASSESSMENT QUESTIONS ALONG WITH HISTORY QUESTIONS. PATIENTS SPOUSE IS AT BEDSIDE. VITAL SIGNS ARE STABLE AT THIS TIME. HE EATS A FULL LIQUID LUNCH AND IS NOTED TO BE RESTING COMFORTABLY EYES CLOSED BREATHING EVEN AND UNLABORED. NADN. HE DENIES ANY WANTS OR NEEDS WILL CONTINUE TO MONITOR CLOSELY.
--- NOTE | 2022-02-04 17:29 | NUR ---
SHIFT SUMMARY; PATIENT ADMIT FROM ER. HE IS AO X 4 ON ARRIVAL. SEE PREVIOUS NOTE. PATIENT CURRENTLY RESTING COMFORTABLY FAMILY AT BEDSIDE. PULSE IS 124 ALL OTHER VITAL SIGNS WITHIN NORMAL LIMITS. SPOUSE CURRENTLY AT BEDSIDE. GAVE PERMISSION TO CHANGE DIET ORDER TO REGULAR DIET. PATIENT RECEIVES BREATHING TREATMENTS PRN AND IS ABLE TO CALL WHEN HE FEELS THAT HE NEEDS ONE.
[2022-02-05 04:34] LABS: BASOPHILS ABSOLUTE AUTO 0.04 K/mm3 (0.00-0.23); BASOPHILS PERCENT AUTO 0 % (0-2); EOSINOPHILS PERCENT AUTO 0 % (0-6); Hematocrit 45.7 % (37.0-53.0); Hemoglobin 15.1 g/dL (13.5-17.5); IMMATURE GRAN PERCENT AUTO 2 % (0-1); LYMPHOCYTES ABSOLUTE AUTO 0.84 K/mm3 (0.84-5.20); LYMPHOCYTES PERCENT AUTO 5 % (21-46); MONOCYTES ABSOLUTE AUTO 1.11 K/mm3 (0.16-1.47); MONOCYTES PERCENT AUTO 7 % (4-13); Mean Corpuscular HGB 31.5 pg (26.0-34.0); Mean Corpuscular Volume 95 fL (80-100); Mean Platelet Volume 9.8 fL (9.1-12.4); NEUTROPHILS PERCENT AUTO 86 % (41-73); Platelet Count 333 K/mm3 (150-400); RDW Coefficient Variation 13.1 % (11.7-14.2); RDW Standard Deviation 46.5 fL (35.1-46.3); Red Blood Cell Count 4.79 M/mm3 (4.30-5.90); White Blood Cell Count 17.19 K/mm3 (4.00-11.30)
[2022-02-05 04:53] LABS: Alanine Aminotransfer (ALT/SGP 34 U/L (12-78); Albumin, Blood 3.2 g/dL (3.4-5.0); Albumin/Globulin Ratio 0.9 (0.8-1.8); Alk Phos 80 U/L (50-136); Anion Gap 9 mmol/L (6-16); Aspartate Aminotrans (AST/SGOT 11 U/L (12-37); Bilirubin, Total 0.3 mg/dL (0.1-1.0); Blood Urea Nitrogen 16 mg/dL (8-24); Bun/Creatinine Ratio 18.5 (12.0-20.0); CO2, Blood 26 mmol/L (21-32); Calcium, Blood 9.2 mg/dL (8.5-10.1); Chloride, Blood 102 mmol/L (98-108); Creatinine, Blood 0.86 mg/dL (0.60-1.20); Globulin, Blood 3.5 g/dL (2.2-4.0); Glomerular Filtration Rate >60 (60-); Glucose, Blood 182 mg/dL (70-99); Potassium, Blood 4.5 mmol/L (3.5-5.5); Sodium, Blood 137 mmol/L (136-145); Total Protein, Blood 6.7 g/dL (6.4-8.2)
--- NOTE | 2022-02-05 05:50 | NUR ---
SHIFT SUMMARY ASSUMED CARE OF PT AT 1900. PT IS A/OX4. HEART SOUNDS REGULAR BUT TACHY WITH SOB AND MOVEMENT. LUNG SOUNDS TIGHT WITH WHEEZES T/O. PT REQUESTED BREATHING TREATMENT THIS AM BUT HAS OTHERWISE HAD NO OVER NIGHT EVENTS. PT SLEPT WELL.
--- NOTE | 2022-02-05 07:41 | NUR ---
Pt is resting in bed. He is on 2 lpm via NC with O2 sats @ 93%. He denies any SOB or resp distress. He is a/o x 4 and denies pain. He is able to make his needs known and has his urinal, personal items and call light in reach.
--- NOTE | 2022-02-05 08:45 | NUR ---
Assumed care of patient. Pt resting in bed. States that he is feeling better now but that this morning he was very SOB and needed 2 breathing treatments. Also C/O some heartburn that has also improved. LS tight with wheezing noted. BT hyperactive. HR reg. Pulses palp. Denies pain or needs at this time. Will continue to monitor.
--- NOTE | 2022-02-05 17:51 | NUR ---
Shift Summary: Pt has felt pretty good since assumption of care this AM. Has remained on RA since about 1100 this am and biox has remained mid 90's. Other VSS throughout shift. No other changes. Will continue to monitor and treat. Will report to night RN.
--- NOTE | 2022-02-05 21:20 | NUR ---
NURSE NOTE- PATIENT ARRIVED AT 2118- TRANSFER FROM PCU. ASSUMED CARE AND AGREE WITH PRIOR NURSE ASSESSMENT DOCUMENTATION, NO ACUTE CHANGES.
--- NOTE | 2022-02-06 04:33 | NUR ---
SHIFT SUMMARY- PATIENT WAS A TRANSFER FROM PCU DURING THE NIGHT. PATIENT REMAINS A/OX4, ADLIB, INDEPENDENT REPOSITIONING IN BED. ROOM AIR, NO COMPLAINTS OF SHORTNESS OF BREATH OR DIFFICULTY BREATHING. BED IN LOW POSITION, CALL HERNANDEZ IN REACH AND RESTING MAJORITY OF THE NIGHT WHEN ROUNDING.
[2022-02-06 04:59] LABS: BASOPHILS ABSOLUTE AUTO 0.04 K/mm3 (0.00-0.23); BASOPHILS PERCENT AUTO 0 % (0-2); EOSINOPHILS PERCENT AUTO 0 % (0-6); Hematocrit 44.3 % (37.0-53.0); Hemoglobin 14.7 g/dL (13.5-17.5); IMMATURE GRAN ABSOLUTE AUTO 0.42 K/mm3 (0.00-0.10); IMMATURE GRAN PERCENT AUTO 2 % (0-1); LYMPHOCYTES ABSOLUTE AUTO 0.78 K/mm3 (0.84-5.20); LYMPHOCYTES PERCENT AUTO 4 % (21-46); MONOCYTES ABSOLUTE AUTO 1.01 K/mm3 (0.16-1.47); MONOCYTES PERCENT AUTO 5 % (4-13); Mean Corpuscular HGB 31.7 pg (26.0-34.0); Mean Corpuscular HGB Conc 33.2 g/dL (31.5-36.5); Mean Corpuscular Volume 96 fL (80-100); Mean Platelet Volume 9.6 fL (9.1-12.4); NEUTROPHILS ABSOLUTE AUTO 16.71 K/mm3 (1.96-9.15); NEUTROPHILS PERCENT AUTO 88 % (41-73); Platelet Count 328 K/mm3 (150-400); RDW Coefficient Variation 13.2 % (11.7-14.2); Red Blood Cell Count 4.64 M/mm3 (4.30-5.90); White Blood Cell Count 18.96 K/mm3 (4.00-11.30)
[2022-02-06 05:17] LABS: Albumin, Blood 3.1 g/dL (3.4-5.0); Anion Gap 8 mmol/L (6-16); Blood Urea Nitrogen 19 mg/dL (8-24); Bun/Creatinine Ratio 21.2 (12.0-20.0); CO2, Blood 26 mmol/L (21-32); Calcium, Blood 9.1 mg/dL (8.5-10.1); Chloride, Blood 103 mmol/L (98-108); Glomerular Filtration Rate >60 (60-); Glucose, Blood 166 mg/dL (70-99); Phosphorus, Blood 4.4 mg/dL (2.5-4.9); Potassium, Blood 4.4 mmol/L (3.5-5.5); Sodium, Blood 137 mmol/L (136-145)
--- NOTE | 2022-02-06 09:29 | NUR ---
PT COOPERATIVE AND PLEASANT. A/O X4. DENIES PAIN. H/R IS REGULAR. PER TOOLING INSPECTOR, NORMAL SINUS TACH IN 100'S. NO MURMUR PRESENT. ON ROOM AIR. BREATHING IS EASY AND UNLABORED. NONPRODUCTIVE COUGH. LUNGS CLEAR BILATERALLY. LAST BOWEL MOVEMENT PER PT WAS THIS AM. PT STATES IT WAS SOFT. AMBULATES TO RESTROOM INDEPENTENTLY. BED IN LOW POSITION, CALL LIGHT IN REACH, CALLS APPROPRIALTY.
--- NOTE | 2022-02-06 10:09 | NUR ---
PT PLEASANT COOP A/O X3. DENIES PAIN. STATES FEELS PRETTY DESCENT. WANTS TO WEAN OFF THE STEROIDS. H/R REG, NN MURMUR NOTED. PER TELE S TACH AT 102. LUNGS CLEAR T/O. RESP EASY, UNLABORED. ON R.A. BT X4 LAST BM TODAY. STATES NORMAL. VOIDS INDEPENDANTLY TO BATHROOM. BED IN LOW POSITION, CALL LITE IN REACH, CALLS APPROP
[2022-02-06] MEDS ORDERED: ALBU2.5V5 INH (12:39)
[2022-02-06] MEDS ORDERED: Flovent Disku250 MCG INH (12:41)
[2022-02-06] MEDS ORDERED: PRED20 PO (12:43)
[2022-02-06] MEDS ORDERED: Loratadine10 MG PO (13:08)
--- NOTE | 2022-02-06 14:19 | NUR ---
PT GIVEN VERABAL AND WRITTEN DISCHARGE INSTRUCTIONS. PT VERBALIZED UNDERSTANDING OF INSTRUCTIONS. IV PULLED INTACT. NO TELE. PT WHEELED OUT TO AUTOMOBILE BY AIDE AT 1419.
--- NOTE | 2022-02-06 14:23 | NUR ---
AGREE WITH STUDENT NOTES.
[2022-02-09 05:11] LABS: IMMUNOGLOBULIN E, TOTAL 343 IU/mL (6-495); M003-IGE ASPERGILLUS FUMIGATUS <0.10 kU/L (Class 0)
[2022-02-09 13:09] LABS: ANA DIRECT Negative (Negative); ANTIMYELOPEROXIDASE (MPO) ABS <9.0 U/mL (0.0-9.0); ANTIPROTEINASE 3 (PR-3) ABS <3.5 U/mL (0.0-3.5); ATYPICAL PANCA <1:20 titer (Neg:<1:20); CYTOPLASMIC (C-ANCA) <1:20 titer (Neg:<1:20); PERINUCLEAR (P-ANCA) <1:20 titer (Neg:<1:20)
== END 2022-02-06 14:52 | disposition home or self-care (01) | DRG 189 ==
LOC: ER 03:23 → PCU 05:54 → ERHOLD 05:54 → MEDS 05:54 → PCU 11:25 → MEDS 02-05 21:19 → ENPENDDIS 02-06 14:36 → MEDS 02-06 14:52
PROVIDERS: Family Medicine; Internal Medicine Critical Care Medicine; Student in an Organized Health Care Education/Training Program; ADMIT Internal Medicine
PROC: 5A09357 Assistance with Respiratory Ventilation, Less than 24 Consecutive Hours, Continuous Positive Airway Pressure (ICD-10-PCS; principal; 2022-02-04)
PROC: HZ2ZZZZ Detoxification Services for Substance Abuse Treatment (ICD-10-PCS; 2022-02-04)
DX: J96.21 Acute and chronic respiratory failure with hypoxia (principal); J96.22 Acute and chronic respiratory failure with hypercapnia; R73.9 Hyperglycemia, unspecified; N40.0 Benign prostatic hyperplasia without lower urinary tract symptoms; J30.2 Other seasonal allergic rhinitis; J43.9 Emphysema, unspecified; F10.20 Alcohol dependence, uncomplicated; E78.5 Hyperlipidemia, unspecified; K21.9 Gastro-esophageal reflux disease without esophagitis; I10 Essential (primary) hypertension; F41.9 Anxiety disorder, unspecified; I73.9 Peripheral vascular disease, unspecified; T38.0X5A Adverse effect of glucocorticoids and synthetic analogues, initial encounter; R91.1 Solitary pulmonary nodule; D72.10 Eosinophilia, unspecified; Z87.891 Personal history of nicotine dependence; Z91.048 Other nonmedicinal substance allergy status; Z79.899 Other long term (current) drug therapy
CPT/HCPCS: 0241U; 36415; 71045; 80048; 80053; 80069; 82785; 82803; 82947; 83520; 85025; 86003; 86037; 86682; 93005; 93010; 94640; 94644; 94660; 94664; 94760; 94761; 94762; 96365; 96367; 96375; 96376; 99285-25; A9270; J0456; J1650; J1815; J2930; J3475; J7060

== ENCOUNTER 2022-10-27 06:56 | Day surgery (SDC) | payer OTHER ==
[~2022-10-27] VITALS: Ht 172.7 cm; Wt 88.4 kg
[~2022-10-27 06:56] MED LIST changes: +ALBU2.5V5 INH; +ATORVASTATIN CA80 M1 PO; +CILOSTAZOL50 M1 PO; +FLOMAX0.4 MG PO; +Flonase 0.05% Nasal; +Flovent Disku250 MCG INH; +Loratadine10 MG PO; +MONT10T PO; -MONTELUKAST SOD10 M1 PO; +ZESTRIL40 M1 PO
[2022-10-27] MEDS ORDERED: Prednisone10 MG PO (07:52)
--- NOTE | 2022-10-27 08:22 | NUR ---
10/27/[address] ORDERED DUONEB BREATHING TX PREOP
--- NOTE | 2022-10-27 09:36 | NUR ---
10/27/22 0936 WALI DIAS 5MLS OF LIDOCAINE 2% WITH EPI 1:100,000 MIXED WITH 5MLS OF INJECTABLE NORMAL SALINE TO CREATE A LOCAL SOLUTION OF LIDOCAINE 1% WITH EPI 1:200,000. 2.5MLS OF LOCAL INJECTED INTO LEFT EAR AT START OF CASE BEFORE STERILE PREP. 7.5MLS OF REMAINING LOCAL POURED ONTO STERILE FIELD FOR USE DURING CASE.
--- NOTE | 2022-10-27 15:07 | NUR ---
10/27/22 1507 Brannon, Jorge BACK HALF OF GAUZE PADS INSIDE EAR COVER SOAKED THROUGH. GAUZE CHANGED, PER DR. SMITH'S INSTRUCTIONS.
== END 2022-10-27 16:05 | disposition home or self-care (01) ==
LOC: ORSCSDS 06:56
PROVIDERS: Otolaryngology
PROC: 0NR607Z Replacement of Left Temporal Bone with Autologous Tissue Substitute, Open Approach (ICD-10-PCS; principal; 2022-10-27 08:15)
DX: H71.92 Unspecified cholesteatoma, left ear (principal); H90.6 Mixed conductive and sensorineural hearing loss, bilateral; I10 Essential (primary) hypertension; I48.91 Unspecified atrial fibrillation; G47.33 Obstructive sleep apnea (adult) (pediatric); J44.9 Chronic obstructive pulmonary disease, unspecified; Z87.891 Personal history of nicotine dependence; K21.9 Gastro-esophageal reflux disease without esophagitis; Z79.02 Long term (current) use of antithrombotics/antiplatelets; Z79.899 Other long term (current) drug therapy
CPT/HCPCS: A9270; J0171; J1100; J2250; J2405; J2704; J3010; J7120

== ENCOUNTER 2023-09-16 10:23 | Day surgery (SDC) | payer OTHER ==
[~2023-09-16] VITALS: Ht 172.7 cm; Wt 83.8 kg
[2023-09-16] MEDS ORDERED: CILO100 (10:55)
[2023-09-16] MEDS ORDERED: FLONASE ALLERG9.9 ML (10:56)
[2023-09-16] MEDS ORDERED: ALBU90OI6 (10:56)
[2023-09-16] MEDS ORDERED: NUCALA100 MG/11 SC (12:16)
[2023-09-16] MEDS ORDERED: TRELEGY ELLIPT1 EAC1 INH (12:16)
[2023-09-16 14:39] VITALS: BP 147/89
== END 2023-09-16 14:32 | disposition home or self-care (01) ==
LOC: ORSCSDS 10:23
PROVIDERS: Internal Medicine Gastroenterology
PROC: 0DBL8ZX Excision of Transverse Colon, Via Natural or Artificial Opening Endoscopic, Diagnostic (ICD-10-PCS; principal; 2023-09-16 12:00)
PROC: 0DB78ZX Excision of Stomach, Pylorus, Via Natural or Artificial Opening Endoscopic, Diagnostic (ICD-10-PCS; principal; 2023-09-16 12:00)
PROC: 0DBP8ZX Excision of Rectum, Via Natural or Artificial Opening Endoscopic, Diagnostic (ICD-10-PCS; principal; 2023-09-16 12:00)
PROC: 0DBH8ZX Excision of Cecum, Via Natural or Artificial Opening Endoscopic, Diagnostic (ICD-10-PCS; principal; 2023-09-16 12:00)
PROC: 3E0H8KZ Introduction of Other Diagnostic Substance into Lower GI, Via Natural or Artificial Opening Endoscopic (ICD-10-PCS; principal; 2023-09-16 12:00)
DX: K92.1 Melena (principal); K21.9 Gastro-esophageal reflux disease without esophagitis; K31.7 Polyp of stomach and duodenum; D12.8 Benign neoplasm of rectum; D12.0 Benign neoplasm of cecum; D12.3 Benign neoplasm of transverse colon; K44.9 Diaphragmatic hernia without obstruction or gangrene; K57.30 Diverticulosis of large intestine without perforation or abscess without bleeding; K64.8 Other hemorrhoids; A63.0 Anogenital (venereal) warts; J44.9 Chronic obstructive pulmonary disease, unspecified; E78.5 Hyperlipidemia, unspecified; G47.33 Obstructive sleep apnea (adult) (pediatric); I73.9 Peripheral vascular disease, unspecified; Z87.891 Personal history of nicotine dependence; Z79.01 Long term (current) use of anticoagulants; Z79.899 Other long term (current) drug therapy
CPT/HCPCS: 88305; 88342; J2250; J2704; J7120

== ENCOUNTER → 2023-10-28 | Outpatient (CLI) | payer OTHER ==
[~2023-10-28] MED LIST changes: +ALBU90OI6; +CILO100; +FLONASE ALLERG9.9 ML; +NUCALA100 MG/11 SC; +TRELEGY ELLIPT1 EAC1 INH
[2023-10-28 20:03] LABS: BASOPHILS ABSOLUTE AUTO 0.03 K/mm3 (0.00-0.23); BASOPHILS PERCENT AUTO 0 % (0-2); EOSINOPHILS ABSOLUTE AUTO 0.06 K/mm3 (0.00-0.68); EOSINOPHILS PERCENT AUTO 1 % (0-6); Hematocrit 47.8 % (37.0-53.0); Hemoglobin 15.9 g/dL (13.5-17.5); IMMATURE GRAN ABSOLUTE AUTO 0.05 K/mm3 (0.00-0.10); IMMATURE GRAN PERCENT AUTO 1 % (0-1); LYMPHOCYTES ABSOLUTE AUTO 0.88 K/mm3 (0.84-5.20); LYMPHOCYTES PERCENT AUTO 13 % (21-46); MONOCYTES ABSOLUTE AUTO 0.89 K/mm3 (0.16-1.47); MONOCYTES PERCENT AUTO 13 % (4-13); Mean Corpuscular HGB 31.1 pg (26.0-34.0); Mean Corpuscular HGB Conc 33.3 g/dL (31.5-36.5); Mean Corpuscular Volume 94 fL (80-100); Mean Platelet Volume 11.3 fL (9.1-12.4); NEUTROPHILS ABSOLUTE AUTO 5.05 K/mm3 (1.96-9.15); NEUTROPHILS PERCENT AUTO 73 % (41-73); Platelet Count 311 K/mm3 (150-400); RDW Coefficient Variation 11.9 % (11.7-14.2); RDW Standard Deviation 41.3 fL (35.1-46.3); Red Blood Cell Count 5.11 M/mm3 (4.30-5.90); White Blood Cell Count 6.96 K/mm3 (4.00-11.30)
[2023-10-28 20:09] LABS: CHOL/HDL RATIO 4.1; Cholesterol 181 mg/dL (50-200); HDL Cholesterol 44 mg/dL (>39); LDL/HDL RATIO 1.9; Low Density Lipoprotein Chol 83 mg/dL (0-110); Triglycerides 269 mg/dL (30-160); Very Low Density Lipoprot Chol 53 mg/dL (6-32)
[2023-10-31 13:09] LABS: A/G RATIO 2.2 (1.2-2.2); BILIRUBIN, TOTAL 0.2 mg/dL (0.0-1.2); CALCIUM, SERUM 9.6 mg/dL (8.6-10.2); CREATININE, SERUM 1.02 mg/dL (0.76-1.27); POTASSIUM, SERUM 4.5 mmol/L (3.5-5.2); PROTEIN, TOTAL, SERUM 6.3 g/dL (6.0-8.5)
== END | disposition home or self-care (01) ==
LOC: LAB SHORT 17:43 → LAB 17:43
PROVIDERS: Family Medicine
DX: I25.10 Atherosclerotic heart disease of native coronary artery without angina pectoris (principal); E78.2 Mixed hyperlipidemia; Z79.899 Other long term (current) drug therapy
CPT/HCPCS: 80053; 80061; 85025

== ENCOUNTER 2024-11-19 08:39 | Day surgery (SDC) | payer OTHER ==
[~2024-11-19] VITALS: Ht 172.7 cm; Wt 83.4 kg
[~2024-11-19 08:39] MED LIST changes: +EPINEPhrine HCl 1 MG / ML 30ML Vial ONE
[2024-11-19] MEDS ORDERED: Tranexamic Acid 100 ML IV ONE (08:56)
[2024-11-19] MEDS ORDERED: Midazolam HCl 1MG / ML 2ML Vial ONE (09:04)
[2024-11-19] MEDS ORDERED: FentaNYL Citrate 50 MCG/ML 2 ML Injection ONE ×4 (09:04→14:25)
[2024-11-19] MEDS ORDERED: propofoL 20 ML IV ONE ×2 (09:04→11:39)
[2024-11-19] MEDS ORDERED: LIPITOR80 MG PO (09:17)
[2024-11-19] MEDS ORDERED: Lactated Ringer's 1,000 ML IV ONE ×2 (10:29→11:55)
[2024-11-19] MEDS ORDERED: Ipratropium/Albuterol SulF 2.5-0.5MG/3 ML Amp ONE (10:36)
[2024-11-19] MEDS ORDERED: Dexamethasone Sod Phos 10 MG/ML 1ML VIAL ONE (10:41)
[2024-11-19] MEDS ORDERED: Ondansetron HCl 2 MG / ML 2ML Vial ONE (10:41)
[2024-11-19] MEDS ORDERED: Rocuronium Bromide 10 MG/ML 5ML Injection IV ONE (10:41)
[2024-11-19] MEDS ORDERED: Lidocaine 1%-Epineph 1:200000 30 ML SDV XX ONE (11:17)
[2024-11-19] MEDS ORDERED: Labetalol HCL 5 MG/ML 4ML Injection (Single Dose) ONE ×2 (11:36→12:00)
--- NOTE | 2024-11-19 11:43 | NUR ---
11/19/[address] FOR DR[address] HUGHES AT [id number]
[2024-11-19] MEDS ORDERED: Sugammadex Sodium 200 MG/2ML SDV (100 MG/ML) ONE (11:47)
[2024-11-19] MEDS ORDERED: EPINEPhrine HCl 1 MG/ML 1ML Amp ONE (12:40)
[2024-11-19] MEDS ORDERED: Phenylephrine HCl 100 MCG/ML-NS 10MLSYR (1MG/10ML) ONE (13:08)
[2024-11-19] MEDS ORDERED: OxyCODONE HCL 5 MG TAB ONE (14:38)
--- NOTE | 2024-11-19 15:13 | NUR ---
11/19/24 1513 Елена Wall PT C/O PAIN A LEVEL OF 7-8/10. PO 5MG OF OXYCODONE GIVEN. PT TOLERATING FLUIDS AND SHORTBREAD COOKIES. PT'S DAD, BELLA, IS AT BEDSIDE, TO LISTEN TO DISCHARGE INSTRUCTIONS. ALL QUESTIONS ANSWERED AND CONCERNS ADDRESSED. PT EDUCATION PROVIDED TO PT AND HIS FAMILY, REGARDING MEDICATION, WHEN TO USE NASAL SPRAY.
[2024-11-19 15:30] VITALS: BP 155/82
== END 2024-11-19 15:42 | disposition home or self-care (01) ==
LOC: ORSCSDS 08:39
PROVIDERS: Otolaryngology
PROC: 09SL0ZZ Reposition Nasal Turbinate, Open Approach (ICD-10-PCS; principal; 2024-11-19 10:15)
PROC: 09DQ4ZZ Extraction of Right Maxillary Sinus, Percutaneous Endoscopic Approach (ICD-10-PCS; principal; 2024-11-19 10:15)
PROC: 09DR4ZZ Extraction of Left Maxillary Sinus, Percutaneous Endoscopic Approach (ICD-10-PCS; principal; 2024-11-19 10:15)
PROC: 09BM0ZZ Excision of Nasal Septum, Open Approach (ICD-10-PCS; principal; 2024-11-19 10:15)
DX: J32.4 Chronic pansinusitis (principal); J34.2 Deviated nasal septum; J34.3 Hypertrophy of nasal turbinates; J33.9 Nasal polyp, unspecified; I10 Essential (primary) hypertension; I48.91 Unspecified atrial fibrillation; E78.5 Hyperlipidemia, unspecified; G47.33 Obstructive sleep apnea (adult) (pediatric); J44.9 Chronic obstructive pulmonary disease, unspecified; Z79.899 Other long term (current) drug therapy
CPT/HCPCS: A9270; C2625; J0171; J1100; J2250; J2371; J2405; J2704; J3010